=== PATIENT | female | born 1985 | race Two or more races ===

== ENCOUNTER 2018-04-10 14:19 | Emergency (ER) | payer MEDICAID ==
[~2018-04-10] VITALS: Ht 162.6 cm; Wt 84.4 kg
[~2018-04-10 14:19] MED LIST: no meds
--- NOTE | 2018-04-10 14:54 | NUR ---
AMBULATORY TO ED BED 02, A/OX4 C/O LOW BACK PAIN SINCE MONDAY, NO TRAUMA. PT STS PAIN IS WORSENING, NOW PAIN GOES TO HER BOTH KNEES. 06/20. NAD VSS ALL NEEDS ARE ATTENDED, WILL CONTINUE TO MONITOR
[2018-04-10] MEDS ORDERED: KETOROLAC TROMETHAMINE INJ 30 MG/ML VIAL IM ONE (15:00)
[2018-04-10] MEDS ORDERED: ONDANSETRON 4 MG TAB.RAPDIS SL ONE (15:00)
[2018-04-10] MEDS ORDERED: HYDROCODONE/APAP 10/325MG 1 EA TABLET PO ONE (15:00)
[2018-04-10] MEDS ORDERED: HYDROCODONE/APAP 10/325MG 1 EA TABLET ONE (15:02)
[2018-04-10] MEDS ORDERED: ONDANSETRON 4 MG TAB.RAPDIS ONE (15:02)
[2018-04-10 15:41] LABS: APPEARANCE,URINE Slightly Cloudy (CLEAR); BILIRUBIN,URINE Negative (NEGATIVE); BLOOD, URINE Negative Ery/uL (NEGATIVE); COLOR,URINE Yellow (YELLOW); KETONES,URINE Negative (NEGATIVE); LEUKOCYTE ESTERASE ,URINE Negative (NEGATIVE); NITRITE, URINE Negative (NEGATIVE); PH,URINE 7.5 (5.0-8.0); PROTEIN,URINE Negative (NEGATIVE); UGLUCOSE Negative (NEGATIVE); UROBILINOGEN,URINE 0.2 EU/dL (0.2)
[2018-04-10] MEDS ORDERED: KETOROLAC TROMETHAMINE INJ 30 MG/ML VIAL ONE (15:47)
--- NOTE | 2018-04-10 16:14 | NUR ---
Patient discharged to home in stable condition. Written and verbal after care instructions given. Patient verbalizes understanding of instruction.
[2018-04-10 16:15] VITALS: BP 145/88
== END 2018-04-10 17:01 | disposition home or self-care (01) ==
LOC: ER 14:26
DX: S33.5XXA Sprain of ligaments of lumbar spine, initial encounter (principal); M54.40 Lumbago with sciatica, unspecified side; Z85.6 Personal history of leukemia; Z98.890 Other specified postprocedural states; X58.XXXA Exposure to other specified factors, initial encounter; Y93.89 Activity, other specified; Y92.89 Other specified places as the place of occurrence of the external cause; Y99.8 Other external cause status
CPT/HCPCS: 81001; 84703; 96372; 99284; A4606; J1885; Q0162; Z7610; 81000-TC